=== PATIENT | female | born 1995 | race Caucasian/White ===

== ENCOUNTER 2017-12-21 03:10 | Emergency (ER) | payer MEDICAID ==
[~2017-12-21] VITALS: Ht 162.6 cm; Wt 53.5 kg
[2017-12-21 03:23] VITALS: Ht 162.6 cm; Wt 53.5 kg
[2017-12-21 07:10] VITALS: BP 110/79
== END 2017-12-21 06:58 | disposition home or self-care (01) ==
LOC: ED 03:10
DX: S90.32XA Contusion of left foot, initial encounter (principal); W50.1XXA Accidental kick by another person, initial encounter; Y93.89 Activity, other specified; Y92.89 Other specified places as the place of occurrence of the external cause; Y99.8 Other external cause status
CPT/HCPCS: Q0092